=== PATIENT | female | born 1965 | race Caucasian/White ===

== ENCOUNTER 2018-09-24 08:47 | Emergency (ER) | payer OTHER ==
[2018-09-24 08:54] VITALS: RESP 18; TEMP 98.1
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
--- NOTE | 2018-09-24 10:32 | XR ---
Left elbow HISTORY: Trauma and pain 3 views of the left elbow Bone mineralization, joint spaces and alignment are maintained. No pathologic joint effusion. IMPRESSION: No fracture or dislocation.
--- NOTE | 2018-09-24 10:33 | XR ---
Left shoulder HISTORY: Trauma and pain 3 views of the left shoulder Bone mineralization, joint spaces and alignment are maintained. Left lung apex as visualized is shan l. IMPRESSION: No fracture or dislocation.
[2018-09-24 11:32] VITALS: BP 145/81; PULSE 100
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
[2018-09-24] MEDS ORDERED: KETOROLAC 30 MG/ML 1 ML VIAL IM STA (12:03)
== END 2018-09-24 12:35 | disposition home or self-care (01) ==
LOC: EC 08:47
DX: S50.02XA Contusion of left elbow, initial encounter (principal); S00.212A Abrasion of left eyelid and periocular area, initial encounter; S10.91XA Abrasion of unspecified part of neck, initial encounter; R29.898 Other symptoms and signs involving the musculoskeletal system; Z87.891 Personal history of nicotine dependence; Z79.1 Long term (current) use of non-steroidal anti-inflammatories (NSAID); Z79.899 Other long term (current) drug therapy; V89.2XXA Person injured in unspecified motor-vehicle accident, traffic, initial encounter; Y92.410 Unspecified street and highway as the place of occurrence of the external cause
CPT/HCPCS: 73030; 73080; 72125; 70450; 99284; 96372; J1885